=== PATIENT | female | born 1950 | race Caucasian/White ===

== ENCOUNTER → 2017-06-03 | Outpatient (CLI) | payer MEDICARE, BC ==
[~2017-06-03] MED LIST: ADVAIR 250/501 DISK IH; FENOFIBRATE160 M1 PO; FLUOXETINE HCL40 MG PO; GABAPENTIN100 MG PO; HYDROCODON-ACE1 EAC7 PO; LISINOPRIL40 MG PO; METFORMIN HCL500 MG PO; NASONEX17 GM BOTH NARES; NORCO 10/3251 TABLET PO; ONE DAILY TABL1 EAC1 PO; PREVACID30 MG PO; PROAIR HFA8.5 GM IH; SIMVASTATIN20 MG PO; SOMA350 MG PO; VOLTAREN 1% GE100 GM TP; ZANAFLEX4 M1 PO; ZOLPIDEM TART12.5 MG PO; ZYRTEC10 M3 PO
== END | disposition home or self-care (01) ==
LOC: CDC 10:03
DX: Z01.810 Encounter for preprocedural cardiovascular examination (principal); G89.4 Chronic pain syndrome
CPT/HCPCS: 93000